=== PATIENT | female | born 1980 | race Caucasian/White ===

== ENCOUNTER 2016-11-19 16:08 | Emergency (ER) | payer BC ==
[2016-11-19 16:09] VITALS: BMI 33.7
[2016-11-19 16:40] VITALS: BP 109/71; TEMP 98.2
--- NOTE | 2016-11-19 17:00 | ED PDOC ---
Arrival/HPI - General Historian: Patient - History of Present Illness Time/Duration: Prior to Arrival Symptom Onset: Sudden Symptom Course: Unchanged Context: Home - General Chief Complaint: Lower Extremity Problem/Injury Time Seen by Provider: 11/19/16 16:15 - History of Present Illness Narrative History of Present Illness (Text): 11/19/16 16:56 36 yo female with PMH of asthma, acid reflex and hepatitis B presented to ED after fall with right foot pain. Patient states that this morning she slipped and fall. She denies loss of consciousness or any trauma to the head. She states that she scrapped her knee adn hurt her foot. She state state she is having pain of her right foot especially with weight bearing. She denies headaches, dizziness, chest pain, SOB, abd pain, urinary symptoms. PMD: none (Lindy,Elisabet) Past Medical History - Provider Review Nursing Documentation Reviewed: Yes - Infectious Disease Hx of Infectious Diseases: None - Cardiac Hx Cardiac Disorders: No - Pulmonary Hx Asthma: Yes - Neurological Hx Neurological Disorder: No - HEENT Hx HEENT Disorder: No - Renal Hx Renal Disorder: No - Endocrine/Metabolic Hx Endocrine Disorders: No - Hematological/Oncological Hx Hepatitis B: Yes - Integumentary Hx Dermatological Disorder: No - Musculoskeletal/Rheumatological Hx Musculoskeletal Disorders: No - Gastrointestinal Hx Gastroesophageal Reflux: Yes - Genitourinary/Gynecological Hx Genitourinary Disorders: No - Psychiatric Hx Psychophysiologic Disorder: No Hx Substance Use: No - Anesthesia Hx Anesthesia: No Family/Social History - Physician Review Nursing Documentation Reviewed: Yes Family/Social History: No Known Family HX Smoking Status: Never Smoked Hx Alcohol Use: No Hx Substance Use: No Allergies/Home Meds Allergies/Adverse Reactions: Allergies No Known Allergies Allergy (Verified 11/19/16 16:38) Home Medications: Home Meds Medication Instructions Recorded Confirmed Albuterol HFA [Ventolin HFA 90 2 puff IH BID 05/20/16 11/19/16 mcg/actuation (8 g)] Omeprazole [Omeprazole] 20 mg PO DAILY 11/19/16 11/19/16 Review of Systems - Review of Systems Constitutional: Normal. absent: Fatigue, Fevers Eyes: Normal. absent: Vision Changes ENT: Normal. absent: Sore Throat, Rhinorrhea, Sinus Congestion Respiratory: Normal. absent: SOB, Cough, Wheezing Cardiovascular: Normal. absent: Chest Pain, Palpitations, Edema, Calf Pain, Syncope Gastrointestinal: Normal. absent: Abdominal Pain, Constipation, Diarrhea, Nausea, Vomiting Genitourinary Female: Normal. absent: Dysuria, Frequency Musculoskeletal: Other (pain in right foot). absent: Back Pain, Neck Pain Skin: Normal. absent: Rash, Pruritis, Laceration, Abscess Neurological: Normal. absent: Headache, Dizziness Endocrine: Normal. absent: Diaphoresis Hemo/Lymphatic: Normal. absent: Easy Bleeding, Easy Bruising Psychiatric: Normal Physical Exam - Systems Exam Head: Present: Atraumatic, Normocephalic Pupils: Present: PERRL. No: Non-Reactive, Pinpoint Extroacular Muscles: Present: EOMI Conjunctiva: Present: Normal Mouth: Present: Moist Mucous Membranes Neck: Present: Normal Range of Motion Respiratory/Chest: Present: Clear to Auscultation, Good Air Exchange. No: Respiratory Distress, Accessory Muscle Use, Wheezes, Rales, Rhonchi, Tachypneic Cardiovascular: Present: Regular Rate and Rhythm, Normal S1, S2. No: Murmurs, Tachycardic, Bradycardic Abdomen: Present: Normal Bowel Sounds. No: Tenderness, Distention, Peritoneal Signs Back: Present: Normal Inspection Upper Extremity: Present: Normal Inspection. No: Cyanosis, Edema Lower Extremity: Present: Normal Inspection, NORMAL PULSES, Tenderness (on lateral aspect of right foot), Other (abrasion of left knee, no tenderness on palpitaion of patella or fibular head, normal ROM). No: Edema, CALF TENDERNESS , Swelling Neurological: Present: GCS=15, CN II-XII Intact, Speech Normal Skin: Present: Warm, Dry, Normal Color. No: Rashes Psychiatric: Present: Alert, Oriented x 3, Normal Insight, Normal Concentration Vital Signs Temp Pulse Resp BP Pulse Ox 11/19/16 18:31 80 18 99 11/19/16 16:39 98.2 F 70 16 109/71 100 Medical Decision Making ED Course and Treatment: Patient seen and examined with resident. Came up with treatment and disposition plan with resident. (Oliver Gayle) 11/19/16 17:02 Impression: 36 yo female with PMH of asthma, acid reflex and hepatitis B presented to ED after fall with right foot pain. Differential Diagnosis included but are not limited to: - fracture Plan: - xray for right foot -- Reassess and disposition Progress Notes: 11/19/16 17:05 - tribe knee rule is 0, no indication for knee xray. Patient denies any pain medication. 11/19/16 18:16 - Foot xray showed no fractures. Patient is agreeable to be discharged home. She is weight bearing and able to ambulate. She is to follow with PMD in 1-2 days. She is to return to ED if symptoms worsen. Discharge plan was discussed with patient in detail, she is in agreement. (Elisabet Israel) - RAD Interpretation Radiology Orders: 11/19/16 16:55 FOOT RIGHT 3 VIEWS ROUTINE [RAD] Stat Disposition/Present on Arrival - Present on Arrival Any Indicators Present on Arrival: No History of DVT/PE: No History of Uncontrolled Diabetes: No Urinary Catheter: No History of Decub. Ulcer: No History Surgical Site Infection Following: None - Disposition Have Diagnosis and Disposition been Completed?: Yes Disposition Time: 18:20 - Disposition Diagnosis: Fall Disposition: HOME/ ROUTINE Condition: GOOD Discharge Instructions (ExitCare): Fall Prevention (ED) Additional Instructions: Eder Rush, thank you for letting us take care of you today. Your provider was Dr. Israel and Dr. Gayle. You were treated for fall. The emergency medical care you received today was directed at your acute symptoms. If you were prescribed any medication, please fill it and take as directed. It may take several days for your symptoms to resolve. Return to the Emergency Department if your symptoms worsen, do not improve, or if you have any other problems. Please contact your doctor or call one of the physicians/clinics you have been referred to that are listed on the Patient Visit Information form that is included in your discharge packet. Bring any paperwork you were given at discharge with you along with any medications you are taking to your follow up visit. Our treatment cannot replace ongoing medical care by a primary care provider (PCP) outside of the emergency department. Thank you for allowing the [facility] team to be part of your care today. If you had an X-Ray or CT scan: A Radiologist will review the ED reading if any change in treatment is needed we will contact you. Referrals: Jamie Ferrer MD [Primary Care Provider] - Follow up with primary
[2016-11-19 18:32] VITALS: PULSE 80; RESP 18; O2SAT 99
--- NOTE | 2016-11-20 09:42 | RAD ---
PROCEDURE: Right Foot Radiographs. HISTORY: pain 2/2 fall COMPARISON: None. FINDINGS: BONES: Normal. No fracture. JOINTS: Normal. SOFT TISSUES: Normal. OTHER FINDINGS: None. IMPRESSION: Normal right foot radiographs.
== END 2016-11-19 18:34 | disposition home or self-care (01) ==
LOC: ED 16:08
DX: Z03.89 Encounter for observation for other suspected diseases and conditions ruled out (principal)

== ENCOUNTER 2017-03-06 09:11 | Day surgery (SDC) | payer BC ==
[2017-02-27 13:09] VITALS: BMI 32.4
[2017-03-06 09:35] VITALS: O2SAT 100
[2017-03-06] MEDS ORDERED: Propofol 10 mg/ml Inj (20 ML) ONE (11:11)
[2017-03-06] MEDS ORDERED: Lidocaine 2% Inj (20ml) ONE (11:11)
[2017-03-06] MEDS ORDERED: Sodium Chloride 0.9% 1,000 ML IV SCH (11:30)
[2017-03-06] MEDS ORDERED: Simethicone 40 mg/0.6 ml Liquid (30 ml) ONE (11:36)
[2017-03-06 13:25] VITALS: BP 117/60; PULSE 70; RESP 17; TEMP 97.9
== END 2017-03-06 13:11 | disposition home or self-care (01) ==
LOC: ENDO 09:11
PROVIDERS: ATTEND Internal Medicine Gastroenterology
DX: K21.9 Gastro-esophageal reflux disease without esophagitis (principal); K29.50 Unspecified chronic gastritis without bleeding; K31.84 Gastroparesis; B18.1 Chronic viral hepatitis B without delta-agent; E04.9 Nontoxic goiter, unspecified; J45.909 Unspecified asthma, uncomplicated; B96.81 Helicobacter pylori [H. pylori] as the cause of diseases classified elsewhere
CPT/HCPCS: 43239; 84703; 88305; 88342; J2704; J7040 ×2

== ENCOUNTER 2018-07-05 11:21 | Outpatient (CLI) | payer BC | END 2018-07-05 11:22 | disposition home or self-care (01) | LOC: CARDIO 11:21 ==